=== PATIENT | male | born 1965 | race Caucasian/White ===

== ENCOUNTER 2021-03-06 12:37 | Emergency (ER) | payer BC ==
[~2021-03-06] VITALS: Ht 180.3 cm; Wt 117.9 kg
[~2021-03-06 12:37] MED LIST: HYDACE5 PO; Hydrochloroth12.5 MG PO; LOSA25; Norvasc2.5 MG PO
[2021-03-06] MEDS ORDERED: ONDA4ODT MM (14:29)
== END 2021-03-06 14:43 | disposition home or self-care (01) ==
LOC: ER 12:37
DX: U07.1 COVID-19 (principal)
CPT/HCPCS: 99283-25; A9270; M0243; Q0243

== ENCOUNTER 2022-02-27 22:36 | Emergency (ER) | payer BC ==
[~2022-02-27] VITALS: Ht 180.3 cm; Wt 122.5 kg
[~2022-02-27 22:36] MED LIST changes: +ONDA4ODT MM
== END 2022-02-28 01:02 | disposition home or self-care (01) ==
LOC: ER 22:36
DX: T84.020A Dislocation of internal right hip prosthesis, initial encounter (principal); I10 Essential (primary) hypertension; Z96.641 Presence of right artificial hip joint; W19.XXXA Unspecified fall, initial encounter; Z79.899 Other long term (current) drug therapy
CPT/HCPCS: 27265; 73501; 73502; 99152; 99284-25; A9270; J2704; J7030

== ENCOUNTER 2022-04-18 16:50 | Emergency (ER) | payer BC ==
[~2022-04-18] VITALS: Ht 180.3 cm; Wt 120.2 kg
[2022-04-18] MEDS ORDERED: Lisinopril2.5 MG PO (17:07)
== END 2022-04-18 19:29 | disposition home or self-care (01) ==
LOC: ER 16:50
DX: T84.020A Dislocation of internal right hip prosthesis, initial encounter (principal); I10 Essential (primary) hypertension; Z79.899 Other long term (current) drug therapy; Y79.2 Prosthetic and other implants, materials and accessory orthopedic devices associated with adverse incidents
CPT/HCPCS: 27266; 73501; 73502; 96374-59; 99284-25; A9270; J1885; J2704; J3010; J7030